=== PATIENT | female | born 1985 | race Caucasian/White ===

== ENCOUNTER → 2016-05-27 | Outpatient (CLI) | payer SELFPAY ==
[~2016-05-27] MED LIST: BRETHINE5 MG PO; FOLIC ACID1 MG PO; MICRONASE PO; PRENATAL 1+1)(P1 TAB PO; TRI-SPRINTEC T1 EACH PO; ZOLOFT100 M1 PO
== END | disposition disaster alternative care site (69) ==
LOC: GRAD 07:07
DX: K80.50 Calculus of bile duct without cholangitis or cholecystitis without obstruction (principal); R10.12 Left upper quadrant pain; R79.89 Other specified abnormal findings of blood chemistry; R16.2 Hepatomegaly with splenomegaly, not elsewhere classified

== ENCOUNTER → 2016-05-28 | Day surgery (SDC) | payer SELFPAY ==
[~2016-05-28] VITALS: Ht 182.9 cm; Wt 124.9 kg
== END ==
LOC: GPOC 05-27 17:00 → GEND 10:11 → GPOC 17:00
PROC: 0DB68ZZ Excision of Stomach, Via Natural or Artificial Opening Endoscopic (ICD-10-PCS; principal; 2016-05-28)
PROC: 0DB98ZZ Excision of Duodenum, Via Natural or Artificial Opening Endoscopic (ICD-10-PCS; 2016-05-28)
DX: R10.11 Right upper quadrant pain (principal); K21.9 Gastro-esophageal reflux disease without esophagitis; F41.9 Anxiety disorder, unspecified; F32.9 Major depressive disorder, single episode, unspecified; G43.909 Migraine, unspecified, not intractable, without status migrainosus; Z98.51 Tubal ligation status; Z83.71 Family history of colonic polyps; Z98.890 Other specified postprocedural states; Z79.3 Long term (current) use of hormonal contraceptives; Z79.899 Other long term (current) drug therapy
CPT/HCPCS: J2001; J7030